=== PATIENT | male | born 1995 | race Two or more races ===

== ENCOUNTER 2022-12-01 20:29 | Emergency (ER) | payer OTHER ==
[~2022-12-01] VITALS: Ht 170.2 cm; Wt 75.9 kg
[2022-12-01 22:19] VITALS: TEMP 99.1
[2022-12-01] MEDS ORDERED: PERTUSS(ACELL),DIPH,TET VAC/PF 0.5 ML SYRINGE IM. ONE (22:30)
[2022-12-02 00:06] VITALS: BP 117/66; PULSE 58; RESP 16
== END 2022-12-02 01:03 | disposition home or self-care (01) ==
LOC: EMS 20:31 → EDBD 20:31 → EMS 12-02 01:03
DX: S01.81XA Laceration without foreign body of other part of head, initial encounter (principal); W45.8XXA Other foreign body or object entering through skin, initial encounter; Y93.89 Activity, other specified; Y92.89 Other specified places as the place of occurrence of the external cause; Y99.8 Other external cause status
CPT/HCPCS: 12014; 90471; 90715; 99283